=== PATIENT | male | born 1970 | race Caucasian/White ===

== ENCOUNTER → 2018-05-15 | Outpatient (CLI) | payer BC ==
--- NOTE | 2018-05-15 14:39 | CONS ---
CONSULTATION DATE OF SERVICE: 05/15/2018 48-year-old gentleman has been evaluated in Sleep Center for possible obstructive sleep apnea-hypopnea syndrome. HISTORY OF PRESENT ILLNESS/SLEEP WAKE EVALUATION: SLEEP SCHEDULE: Patient usual sleep schedule on weekdays from 10 p.m. until 6 a.m. and on weekends from around midnight until 8:00 am. FALLING ASLEEP: Usually no problems with falling asleep, although patient has TV set in bedroom. DURING SLEEP: He sleeps with his in different position with witnessed loud snoring and stops breathing during the sleep. DURING THE DAY/SLEEP WAKE EVALUATION: The patient wakes up with a dry mouth and nocturia about 3 times at night and sometimes has difficulties to fall asleep again. [place] Sleepiness Scale is 9. After awakenings in the morning, patients feel tired, has difficulties to pay attention, worry about his sleep, has problems with memory, concentration, irritability, and sexual dysfunction. PAST MEDICAL HISTORY: Positive for epilepsy with grand mal seizure. This last episode several years ago. Seasonal allergies. PAST SURGICAL HISTORY: Hernia repair. FAMILY HISTORY: Hypertension, heart problem, hyperlipidemia, arthritis, asthma, sinus problems, sleep apnea, snoring, pneumonia, headaches, ulcers, acid reflux. SOCIAL HISTORY: Negative for smoking. Alcohol consumption very rarely. REVIEW OF SYSTEMS: Awakenings from sleep with nocturia, snoring, tiredness, sleepiness during the day. PHYSICAL EXAM: A 48-year-old gentleman without distress BP 104/72, HR 72, RR 16, height 5 feet 8 inches, weight 155.4, body mass index 23.2, temperature 97.0, oxygen saturation on room air 99%. Oropharynx moderately low position of soft palate. Neck 15 inches in circumference. Neck Supple, no JVD. Thyroid is not palpable. LUNGS Clear to percussion and to auscultation. Good air exchange. No wheezing or rhonchi. HEART S1, S2 regular. No murmurs, gallops, or rubs. ABDOMEN Soft and nontender. Bowel sounds are present. No organomegaly appreciated. EXTREMITIES No clubbing or cyanosis. CNC OPERATOR Awake, alert, and oriented X3. Cranial nerves 2 to 7 intact. There is no fasciculation or atrophy. noted. No focal deficits observed. IMPRESSION: 1. Snoring, witnessed episodes of stopped breathing during the sleep. Moderately low position of soft palate awakenings from sleep with nocturia. Obstructive sleep apnea-hypopnea syndrome. 2. History of epilepsy with grand mal surgeries. Last episode several years ago. 3. Seasonal allergies. 4. Status post hernia repair. 5. Recent memory problems. PLAN: 1. Polysomnography for evaluation of patient's breathing during sleep. 2. CPAP/BiPAP titration if sleep study confirms obstructive sleep apnea-hypopnea syndrome. 3. Preferable position during sleep on the side. 4. No driving if patient feels any sleepiness. 5. I will see patient for follow up visit to explain results of testing and following plan. Thank you very much for referring this patient for consultation. Sincerely, Cesar Boyle MD, PhD, FAASM Diplomat of [employer] [employer] [employer] Biod[employer]el Production Technician of [facility] [place] [facility]FARIDAL / AMANDAN: [phone] /
== END | disposition home or self-care (01) ==
LOC: SLEEP 11:36
PROVIDERS: ATTEND Internal Medicine
DX: G47.33 Obstructive sleep apnea (adult) (pediatric) (principal); J30.2 Other seasonal allergic rhinitis; Z86.69 Personal history of other diseases of the nervous system and sense organs; Z98.890 Other specified postprocedural states
CPT/HCPCS: 99211

== ENCOUNTER → 2018-09-12 | Outpatient (CLI) | payer BC ==
--- NOTE | 2018-09-12 14:55 | SFUN ---
SLEEP CENTER FOLLOW UP NOTE DATE OF SERVICE: 09/12/2018 A 48-year-old gentleman who has been followed in the Sleep Center for treatment of obstructive sleep apnea-hypopnea syndrome. Recently patient had a home sleep apnea test which showed severe sleep apnea and after that he had CPAP titration which showed that on the pressure of 6, patient respiration was normalized. Subsequently, patient received his CPAP unit and started to use it. Patient able to use it every night without significant problems. He thinks that he sleeps better with the machine versus without machine. [place] Sleepiness Scale today is 9. I discussed results of sleep studies with patient in detail. I checked his CPAP unit. Usage is 100% of the nights, /30 nights patient used machine for more than 4 hours. Average usage 5.8 hours, leak is 10 L/minute. Pressure in the machine was installed at 6.0, but in reality pressure is 5.6. Apnea-hypopnea index is 20.3, for the last night, apnea-hypopnea index 23.1. MEDICATION: Dilantin. PHYSICAL EXAM: Patient in no distress. BP 122/77, HR 88, RR 16, weight 155, temp 97.9, oxygen saturation at room air 96%. OROPHARYNX: Low position of soft palate. Neck Supple, no JVD. Thyroid is not palpable. LUNGS Clear to percussion and to auscultation. Good air exchange. No wheezing or rhonchi. HEART S1, S2 regular. No murmurs, gallops, or rubs. ABDOMEN Soft and nontender. Bowel sounds are present. No organomegaly appreciated. EXTREMITIES No clubbing or cyanosis. BRAND AMBASS[employer]ORS PROMOTIONAL SALES Awake, alert, and oriented X3. Cranial nerves 2 to 7 intact. There is no fasciculation or atrophy. noted. No focal deficits observed. IMPRESSION: 1. Obstructive sleep apnea-hypopnea syndrome. Patient demonstrated great compliance with treatment, benefitting from treatment. 2. Patient still has high apnea-hypopnea index on CPAP, possibly pressure is not sufficient for correction of respiratory abnormalities. 3. History of epilepsy. 4. Seasonal allergy. 5. History of some memory problems. PLAN: 1. Patient will continue to use CPAP equipment every night for the whole night. 2. I will increase pressure to the range of pressure up to 10 cm of water. 3. Sleep hygiene with regular time in bed for at least 8 hours. 4. No driving if feeling sleepiness. Thank you very much for allowing me to participate in the management of your patient. Sincerely. Cesar Boyle MD, PhD, FAASM Diplomat of [place] [employer] [place] [employer] Peer Counselor of [facility] [place] / JESSI: [id number] /
== END | disposition home or self-care (01) ==
LOC: SLEEP 13:58
PROVIDERS: ATTEND Internal Medicine
DX: G47.33 Obstructive sleep apnea (adult) (pediatric) (principal); J30.2 Other seasonal allergic rhinitis; Z86.69 Personal history of other diseases of the nervous system and sense organs; Z99.89 Dependence on other enabling machines and devices

== ENCOUNTER → 2018-11-14 | Outpatient (CLI) | payer BC ==
--- NOTE | 2018-11-14 22:51 | PN ---
PROGRESS NOTE DATE OF SERVICE: 11/14/2018 48-year-old gentleman who has been followed in Sleep Center for treatment of obstructive sleep apnea-hypopnea syndrome. Patient continued to use his CPAP equipment every night for the whole night and since the pressure was increased during the last visit he feels better in terms of sleeping during the day. [place] Sleepiness Scale today is only 3. I checked his CPAP unit. Usage is 100% of the time more than 4 hours. Average usage is 6.3 hours. Pressure in the machine 4-10 cm of water. Most of the time pressure in the machine 9.8 cm of water. ( ) is only 8 L/minute, which is very minimal. Apnea- hypopnea index average for the last month is 7.7, which is significant improvement comparing with the previous visit when apnea-hypopnea index was in the range of 20. MEDICATIONS: Dilantin. PHYSICAL EXAM: Patient in no distress. BP 112/67, HR 88, RR 16, height 5 feet 8 inches, weight 161 pounds, body mass index 24.4, temperature 98.1, oxygen saturation at room air 97%. HEENT PERRLA, EOMI, evaluation of oropharynx showed tongue protrudes midline. Low position of soft palate. Neck Supple, no JVD. Thyroid is not palpable. LUNGS Clear to percussion and to auscultation. Good air exchange. No wheezing or rhonchi. HEART S1, S2 regular. No murmurs, gallops, or rubs. ABDOMEN Soft and nontender. Bowel sounds are present. No organomegaly appreciated. EXTREMITIES No clubbing or cyanosis. WRITING TUTOR Awake, alert, and oriented X3. Cranial nerves 2 to 7 intact. There is no fasciculation or atrophy noted. No focal deficits observed. IMPRESSION: 1. Obstructive sleep apnea-hypopnea syndrome. Patient demonstrated 100% compliance with treatment benefitting from treatment. 2. History of epilepsy. 3. Seasonal allergies. 4. History of memory problems. PLAN: 1. I will change ramp time to 30 minutes and I will increase maximal pressure to 11 cm of water. 2. Patient will continue to use CPAP equipment every night for the whole night. 3. Sleep hygiene with regular time in bed for at least 8 hours. 4. No driving if feeling sleepiness. 5. Will maintain all necessary prescription for CPAP supplies. Thank you very much for allowing me to participate in management of your patient. Cesar Boyle MD, PhD, FAASM Diplomat of [employer] [employer] Construction Producer of [facility] [place] MMFARIDAL / AMANDAN: [id number] /
== END ==
LOC: SLEEP 16:34
PROVIDERS: ATTEND Internal Medicine
DX: G47.33 Obstructive sleep apnea (adult) (pediatric) (principal); J30.2 Other seasonal allergic rhinitis; Z86.59 Personal history of other mental and behavioral disorders; Z99.89 Dependence on other enabling machines and devices; Z86.69 Personal history of other diseases of the nervous system and sense organs; Z79.899 Other long term (current) drug therapy

== ENCOUNTER → 2019-08-25 | Outpatient (CLI) | payer BC | END | disposition home or self-care (01) | LOC: LABWHC1 11:55 | PROVIDERS: ATTEND Internal Medicine | DX: G40.89 Other seizures (principal) | CPT/HCPCS: 36415; 80185 ==

== ENCOUNTER → 2020-12-07 | Outpatient (CLI) | payer BC | LOC: LABPAT 12:36 | PROVIDERS: ATTEND Student in an Organized Health Care Education/Training Program | DX: Z01.812 Encounter for preprocedural laboratory examination (principal); K46.9 Unspecified abdominal hernia without obstruction or gangrene | CPT/HCPCS: 36415; 86850; 86900; 86901; 93005 ==

== ENCOUNTER 2020-12-14 09:42 | Day surgery (SDC) | payer BC ==
[2020-12-09 13:16] VITALS: BMI 23.6
[~2020-12-14 09:42] MED LIST: HEPARIN SODIUM,PORCINE 5,000 UNIT/ML 1 ML VIAL SQ PRN; fentaNYL (PF) 50 MCG/ML 2 ML AMP IV PRN
[2020-12-14 10:52] LABS: Basophils % (A) 1 %; Eosinophils # (A) 0.2 k/uL (0-0.7); Eosinophils % (A) 3 %; HCT 46.9 % (39.0-53.0); HGB 16.2 gm/dL (13.0-17.5); Lymphocytes # (A) 1.5 k/uL (1.0-4.8); Lymphocytes % (A) 29 %; MCH 31.3 pg (25.0-35.0); MCHC 34.5 g/dL (31.0-37.0); MCV 90.7 fL (80.0-100.0); Mean Platelet Volume 7.2; Monocytes # (A) 0.4 k/uL (0-1.0); Monocytes % (A) 7 %; Neutrophils # (A) 3.1 k/uL (1.3-7.7); Neutrophils % (A) 58 %; Platelet Count 266 k/uL (150-450); RBC 5.16 m/uL (4.30-5.90); RDW 12.4 % (11.5-15.5); WBC 5.2 k/uL (3.8-10.6)
[2020-12-14] MEDS ORDERED: LIDOCAINE 1% INJ 10MG/ML (20 ML MDV) ONE ×3 (11:00→11:36)
[2020-12-14] MEDS: LACTATED RINGERS 1,000 ML IV SCH ×2 (11:13→15:28)
[2020-12-14] MEDS: ONDANSETRON 4 MG/2 ML VIAL IVP PRN ×2 (11:13→14:03)
[2020-12-14] MEDS ORDERED: MIDAZOLAM 2 MG/2 ML VIAL IVP ONE (11:18)
[2020-12-14] MEDS ORDERED: PROPOFOL 10 MG/ML 20 ML VIAL IV ONE (11:36)
[2020-12-14] MEDS ORDERED: KETOROLAC 15 MG/ML 1 ML VIAL ONE (11:36)
[2020-12-14] MEDS ORDERED: ROPIVACAINE 5 MG/ML 30 ML VIAL ONE (11:36)
[2020-12-14] MEDS ORDERED: fentaNYL (PF) 50 MCG/ML 2 ML AMP ONE (11:36)
[2020-12-14] MEDS ORDERED: ROCURONIUM 10 MG/ML (5 ML VIAL) IV ONE (11:36)
[2020-12-14] MEDS ORDERED: NEOSTIGMINE 1 MG/ML 10 ML VIAL ONE (11:36)
[2020-12-14] MEDS ORDERED: GLYCOPYRROLATE 0.2 MG/ML 2 ML VIAL ONE (11:36)
[2020-12-14] MEDS ORDERED: HYDROmorphone (PF) 1 MG/ML ONE (11:36)
[2020-12-14] MEDS ORDERED: MIDAZOLAM 2 MG/2 ML VIAL ONE (11:36)
[2020-12-14] MEDS ORDERED: SUCCINYLCHOLINE CHLORIDE 100 MG/5 ML SYR IV ONE (11:36)
[2020-12-14] MEDS ORDERED: BUPIVACAINE (PF) 0.5% 30 ML VIAL SQ ONE ×2 (12:00)
--- NOTE | 2020-12-14 12:28 | P.ANPRN ---
Procedure Note - Anesthesia - Nerve Block Performed Right Erector Spinae Single Time Out Performed: Yes Date of Procedure: 12/14/20 Procedure Start Time: :18 Procedure Stop Time: :24 Location of Patient: PreOp Indication: Acute Post-Operative Pain, Requested by Surgeon Sedation Type: Sedate with meaningful contact maintained Preparation: Sterile Prep Position: Prone Needle Types: Pajunk Needle Gauge: 21 Ultrasound used to visualize needle placement: Yes Ultrasound used to observe medication spread: Yes Blood Aspirated: No Pain Paresthesia on Injection Noted: No Resistance on Injection: Normal Image Stored and Saved: Yes Events: Uneventful and Well Tolerated (ropi .5% 15cc plus xylo 1% 15cc)
[2020-12-14] MEDS ORDERED: LACTATED RINGERS 1,000 ML IV ONE (12:38)
--- NOTE | 2020-12-14 12:54 | P.OP ---
Date of Procedure: 12/14/20 Preoperative Diagnosis: Right inguinal hernia Postoperative Diagnosis: Same Procedure(s) Performed: Robotic-assisted right inguinal hernia repair Anesthesia: ANA ROSA Surgeon: Yousif Carrillo Estimated Blood Loss (ml): 5 Condition: stable Disposition: PACU Description of Procedure: Patient brought operative suite remained supine position underwent general endotracheal anesthesia per Department of anesthesia prepped and draped usual sterile fashion timeout performed correct patient correct procedure correct site was verified incision was made supraumbilical. On the fascia incised in usual fashion abdomen was entered under direct visualization port was placed and abdomen was insufflated. A 8 mm ports were placed on either side of this lateral. Robot was docked patient was placed in Trendelenburg right-sided defect was noted there was no significant left-sided defect noted. The peritoneum was taken down medially to the pubis laterally posterior to the psoas the hernia defect was reduced off the cord structures there is also a direct defect was reduced. The mesh was placed and the peritoneum was sutured and reapproximated with a 2-0 vlock suture. The midline fascia was reapproximated with 0 Vicryl sutures in an interrupted fashion with 8 of a Bk-Juarez suture passer ports removed under direct visualization the abdomen was desufflated skin was closed 4-0 Vicryl subcuticular stitches and skin glue patient tolerated procedure well no apparent complications Plan - Discharge Summary Discharge Rx Participant: No New Discharge Prescriptions: No Action Phenytoin Sodium Extended [Dilantin] 100 mg PO QID Discharge Medication List Phenytoin Sodium Extended [Dilantin] 100 mg PO QID 08/13/14 [History]
[2020-12-14 13:00] VITALS: TEMP 97
[2020-12-14] MEDS: HYDROmorphone 0.5 MG/0.5 ML SYRINGE IVP PRN ×2 (13:10→13:35)
[2020-12-14 13:54] VITALS: RESP 16
[2020-12-14] MEDS ORDERED: ONDANSETRON 4 MG/2 ML VIAL ONE (14:01)
[2020-12-14] MEDS ORDERED: DEXAMETHASONE SOD PHOSPHATE 4 MG/ML 1 ML VIAL IV ONE (14:03)
[2020-12-14] MEDS ORDERED: diphenhydrAMINE 50 MG/ML 1 ML VIAL ONE (15:34)
[2020-12-14] MEDS ORDERED: diphenhydrAMINE 50 MG/ML 1 ML VIAL IVP ONE (15:36)
[2020-12-14 15:55] VITALS: PULSE 88
[2020-12-14 16:34] VITALS: BP 105/64
== END 2020-12-14 19:12 | disposition home or self-care (01) ==
LOC: OR 09:42
PROVIDERS: ATTEND Student in an Organized Health Care Education/Training Program
DX: K40.90 Unilateral inguinal hernia, without obstruction or gangrene, not specified as recurrent (principal); Z79.899 Other long term (current) drug therapy; G40.909 Epilepsy, unspecified, not intractable, without status epilepticus; Z98.890 Other specified postprocedural states
CPT/HCPCS: 49650; S2900; 36415; 64999; 76942; 85025; 86850; 86900; 86901